=== PATIENT | male | born 1995 | race Caucasian/White ===

== ENCOUNTER 2017-06-23 21:14 | Emergency (ER) | payer OTHER, MEDICAID ==
[2017-06-23 21:44] LABS: ABSOLUTE EOSINOPHILS # (AUTO) 0.1 10^3/uL (0.0-0.6); ABSOLUTE LYMPHOCYTES (AUTO) 2.1 10^3/uL (0.5-4.7); ABSOLUTE MONOCYTES (AUTO) 0.4 10^3/uL (0.1-1.4); ABSOLUTE NEUT (AUTO) 3.1 10^3/uL (1.7-8.2); BASOPHILS % (AUTO) 0.3 % (0-2); EOSINOPHILS % (AUTO) 1.9 % (0-6); HEMATOCRIT 41.8 % (37.9-51.0); HEMOGLOBIN 14.4 g/dL (13.5-17.0); LYMPHOCYTES % (AUTO) 36.9 % (13-45); MEAN CORPUSCULAR HEMOGLOBIN 28.4 pg (27.0-33.4); MEAN CORPUSCULAR HGB CONC 34.5 g/dL (32.0-36.0); MEAN CORPUSCULAR VOLUME 82 fl (80-97); MONOCYTES % (AUTO) 7.5 % (3-13); PLATELET COUNT 219 10^3/uL (150-450); RED BLOOD COUNT 5.07 10^6/uL (4.35-5.55); RED CELL DISTRIBUTION WIDTH 12.8 % (11.5-14.0); SEGMENTED NEUTROPHILS % (AUTO) 53.4 % (42-78); TOTAL CELLS COUNTED % (AUTO) 100 %; WHITE BLOOD COUNT 5.7 10^3/uL (4.0-10.5)
[2017-06-23 22:04] LABS: ANION GAP 10 (5-19); BLOOD UREA NITROGEN 7 mg/dL (7-20); CALCIUM 9.5 mg/dL (8.4-10.2); CARBON DIOXIDE 26 mmol/L (22-30); CHLORIDE 102 mmol/L (98-107); GLUCOSE 117 mg/dL (75-110); POTASSIUM 3.7 mmol/L (3.6-5.0); SODIUM 138.2 mmol/L (137-145)
[2017-06-23 22:05] LABS: ACETAMINOPHEN < 10 ug/mL (10-30); ALCOHOL < 10 mg/dL (NONE DETECTED)
--- NOTE | 2017-06-23 22:25 | ER Document Report ---
ED General - General Mode of Arrival: Medic Information source: Patient TRAVEL OUTSIDE OF THE U.S. IN LAST 30 DAYS: No <GABY SHIPLEY - Last Filed: 06/23/17 22:33> <HERMAN SLATER - Last Filed: 06/24/17 03:37> - General Chief Complaint: Overdose Stated Complaint: POSSIBLE OVERDOSE Time Seen by Provider: 06/23/17 21:24 Notes: Patient is a 22 year old male presenting to the emergency department via EMS due to a heroin overdose. Patient states that he took a little more heroin than normal. When father arrived at bedside he states he found him unresponsive and blue so he proceeded to give him a dose of Narcan. When asking patient about rehab, he states that he has to go and has no other option. Patient states that all his friends use heroin. (GABY SHIPLEY) - Related Data Allergies/Adverse Reactions: latex [Latex] Adverse Reaction (Unknown, Verified 06/24/12 09:11) mom strong latex allergy dairy products Adverse Reaction (Severe, Uncoded 06/24/12 09:11) severe diarrhea,GI upset Past Medical History - General Information source: Patient, Parent - Social History Smoking Status: Unknown if Ever Smoked Frequency of alcohol use: None Drug Abuse: Cocaine, Heroin Family History: Reviewed & Not Pertinent Pulmonary Medical History: Reports: Hx Asthma - exercise induced,no recent ER visit Neurological Medical History: Reports: Hx Seizures - last one 3 yrs ago Past Surgical History: Denies: Hx Pacemaker - Immunizations Hx Diphtheria, Pertussis, Tetanus Vaccination: Yes <GABY SHIPLEY - Last Filed: 06/23/17 22:33> Review of Systems - Review of Systems Constitutional: No symptoms reported EENT: No symptoms reported Cardiovascular: No symptoms reported Respiratory: No symptoms reported Gastrointestinal: No symptoms reported Genitourinary: No symptoms reported Male Genitourinary: No symptoms reported Musculoskeletal: No symptoms reported Skin: No symptoms reported Hematologic/Lymphatic: No symptoms reported Neurological/Psychological: No symptoms reported -: Yes All other systems reviewed and negative <GABY SHIPLEY - Last Filed: 06/23/17 22:33> Physical Exam <GABY SHIPLEY - Last Filed: 06/23/17 22:33> <HERMAN SLATER - Last Filed: 06/24/17 03:37> - Vital signs Vitals: Resp Pulse Ox 19 99 06/23/17 21:21 06/23/17 21:21 - Notes Notes: GENERAL: Drowsy, easily aroused . No acute distress. HEAD: Normocephalic, atraumatic. EYES: Pupils approximately 4mm bilaterally. Extraocular movements intact. ENT: Dry mucosa moist, tongue midline. NECK: Full range of motion. Supple. Trachea midline. LUNGS: Clear to auscultation bilaterally, no wheezes, rales, or rhonchi. No respiratory distress. HEART: Regular rate and rhythm. No murmurs, gallops, or rubs. ABDOMEN: Soft, non-tender. Non-distended. Bowel sounds present in all 4 quadrants. EXTREMITIES: Moves all 4 extremities spontaneously. NEUROLOGICAL: Alert and oriented x3. Normal speech. PSYCH: Normal affect, normal mood. SKIN: Warm, dry, normal turgor. No rashes or lesions noted. (GABY SHIPLEY) Course - Laboratory Result Diagrams: 06/23/17 21:35 06/23/17 21:35 <GABY SHIPLEY - Last Filed: 06/23/17 22:33> - Laboratory Result Diagrams: 06/23/17 21:35 06/23/17 21:35 <HERMAN SLATER - Last Filed: 06/24/17 03:37> - Re-evaluation Re-evalutation: 06/24/17 02:36 Patient is a 22-year-old male who was brought in after heroin overdose at home during which his father gave him 2 mg of Narcan to resuscitated. Patient's family has Narcan at home because his brother also has had a problem with opiate addiction. Patient denies any suicidal or homicidal ideation. Patient states that he is used heroin for a while. Patient is willing to discuss rehabilitation. Patient was observed in the emergency department for 6 hours. He had no respiratory distress, difficulty breathing. He is ambulated without difficulty. Family has Narcan at home in case he would need to use it but they should not have to tonight. Father has been given resources for outpatient rehabilitation and patient has been given a copy of his blood work and urine. Return immediately if any worsening or concerning symptoms. Stable for discharge. (HERMAN SLATER) - Vital Signs Vital signs: Temp Pulse Resp BP Pulse Ox 97.2 F 12 129/63 H 94 06/23/17 21:27 06/24/17 00:01 06/24/17 00:01 06/24/17 00:01 - Laboratory Laboratory results interpreted by me: 06/23/17 06/24/17 21:35 01:20 Glucose 117 H Ur Leukocyte Esterase TRACE H Acetaminophen < 10 L Critical Care Note - Critical Care Note Total time excluding time spent on procedures (mins): 35 - Evaluation and management of opiate overdose, multiple re-evaluations, counseling of patient and family <HERMAN SLATER - Last Filed: 06/24/17 03:37> Discharge <GABY SHIPLEY - Last Filed: 06/23/17 22:33> <HERMAN SLATER - Last Filed: 06/24/17 03:37> - Discharge Clinical Impression: Opiate or related narcotic overdose Qualifiers: Encounter type: initial encounter Injury intent: accidental or unintentional Qualified Code(s): T40.601A - Poisoning by unspecified narcotics, accidental ( unintentional), initial encounter Condition: Stable Disposition: HOME, SELF-CARE Instructions: Instructions for Home Care Following a Drug Overdose ([facility]), Narcotic Abuse ([facility]) Additional Instructions: Please follow-up at a rehabilitation facility. Please take a copy of your blood work and urine with you. Prescriptions: Ondansetron [Zofran Odt 4 mg Tablet] 1 tab PO Q6HP PRN #15 tab.rapdis PRN Reason: For Nausea/Vomiting Clonidine HCl 0.1 mg PO BID #14 tablet Hydroxyzine Pamoate [Vistaril 25 mg Capsule] 25 mg PO BIDP PRN #14 capsule PRN Reason: Metoclopramide HCl [Reglan 10 mg Tablet] 1 tab PO TIDP PRN #25 tablet PRN Reason: Forms: Parent Work Note, Return to School, Return to Work Scribe Attestation: 06/24/17 03:37 I personally performed the services described in the documentation, reviewed and edited the documentation which was dictated to the scribe in my presence, and it accurately records my words and actions. (HERMAN SLATER) Scribe Documentation - Scribe Written by Scribe:: Boom Torres, 06/23/2017 22:33 acting as scribe for :: Frances <GABY SHIPLEY - Last Filed: 06/23/17 22:33>
[2017-06-24 00:37] VITALS: BP 129/63
[2017-06-24] MEDS ORDERED: NORMAL SALINE 1000 ML 1,000 ML IV ONE (00:40)
[2017-06-24 02:11] LABS: URINE AMPHETAMINES SCREEN NEGATIVE; URINE BARBITURATES SCREEN NEGATIVE; URINE BENZODIAZEPINES SCREEN NEGATIVE; URINE COCAINE SCREEN NEGATIVE; URINE MARIJUANA (THC) SCREEN NEGATIVE; URINE METHADONE SCREEN NEGATIVE; URINE PHENCYCLIDINE SCREEN NEGATIVE
[2017-06-24 02:12] LABS: APPEARANCE,URINE CLEAR; BILIRUBIN,URINE NEGATIVE (NEGATIVE); COLOR,URINE YELLOW; GLUCOSE, URINE NEGATIVE (NEGATIVE); KETONES,URINE NEGATIVE (NEGATIVE); LEUKOCYTE ESTERASE,URINE TRACE (NEGATIVE); NITRITE,URINE NEGATIVE (NEGATIVE); PROTEIN,URINE NEGATIVE (NEGATIVE); URINE SPECIFIC GRAVITY 1.015; UROBILINOGEN,URINE NEGATIVE mg/dL (<2.0)
--- NOTE | 2017-06-24 12:47 | EKG REPORT ---
SEVERITY:- NORMAL ECG - SINUS RHYTHM : Confirmed by: Nii Martinez MD 24-Jun-2017 12:46:32
== END 2017-06-24 02:38 | disposition home or self-care (01) ==
LOC: ER 21:14
DX: T40.1X1A Poisoning by heroin, accidental (unintentional), initial encounter (principal); Y92.003 Bedroom of unspecified non-institutional (private) residence as the place of occurrence of the external cause; F14.10 Cocaine abuse, uncomplicated; J45.909 Unspecified asthma, uncomplicated
CPT/HCPCS: 93005; 99291; 96360; 36415; 80307 ×3; 85025; 80048; 81001; 93010; J7030

== ENCOUNTER 2017-11-08 14:27 | Emergency (ER) | payer OTHER, MEDICAID ==
--- NOTE | 2017-11-08 15:49 | PSYCHOLOGICAL NOTE ---
Psych Note - Psych Note Psych Note: Reason for Consult: Substance abuse Patient presents to ER A&O x 4 after heroin overdose. Pt reports he was at work and went to the bathroom and injected 1 bag of heroin IV. Bystanders report pt was agonal breathing. Patient disclosed that he arrived to [facility] ED because he "Genny." Patient reports that he overdosed on heroin while at work. Patient denies this was an attempt at suicide willing to get high. Patient does request assistance in sobriety because he has been using for about 1 and 1/2 years now. Patient is alert and orientated to person, place, time and circumstance. Mood is euthymic as patient is currently under the influence of heroin. Patient denies suicidal and homicidal ideation. Patient is noted to be under the influence of heroin however is able to carry on a linear and organized conversation. Eye contact was poor. Conversational speech was low however easily understood. Attention and concentration were fair. Insight, judgment, impulse control are poor due to substance abuse. No medication or conditions at this time 292.89 (F11.129) opiate intoxication; without perceptual disturbances, with use disorder moderate Impression\\plan: Patient is cleared from acute psychiatric services. Patient does not meet IVC criteria per [place] GS 122C. Patient discloses using heroin in attempt to get high denies suicidal ideation. Patient requests information for substance abuse treatment; he was provided resource list. Dr. Curran was consulted and the care and management this patient; attending physician is agreement with recommendations and disposition.
--- NOTE | 2017-11-08 15:55 | ER Document Report ---
ED General - General Chief Complaint: Overdose Stated Complaint: POSSIBLE OVERDOSE Time Seen by Provider: 11/08/17 15:22 Mode of Arrival: Medic Information source: Patient, Law Enforcement Notes: 22-year-old male presents via EMS from his job at [employer] after being found down in the bathroom unresponsive. Patient admits to injecting heroin just prior to being found. He states that he intermittently uses heroin but denies any other drug use. He denies any shortness of breath, chest pain, abdominal pain, nausea, vomiting. He denies any headache. TRAVEL OUTSIDE OF THE [place] IN LAST 30 DAYS: No - HPI Onset: Just prior to arrival - Related Data Allergies/Adverse Reactions: latex [Latex] Adverse Reaction (Unknown, Verified 11/09/17 07:26) mom strong latex allergy dairy products Adverse Reaction (Severe, Uncoded 11/09/17 07:26) severe diarrhea,GI upset Past Medical History - General Information source: Patient, [facility] Records - Social History Smoking Status: Current Every Day Smoker Cigarette use (# per day): Yes - 1ppd Smoking Education Provided: Yes - Patient counselled regarding cessation for 4 minutes Frequency of alcohol use: Occasional Drug Abuse: Heroin Lives with: Family Family History: Reviewed & Not Pertinent Patient has suicidal ideation: No Patient has homicidal ideation: No - Past Medical History Cardiac Medical History: Denies: Hx Coronary Artery Disease, Hx Heart Attack, Hx Hypertension Pulmonary Medical History: Reports: Hx Asthma - exercise induced,no recent ER visit Denies: Hx Bronchitis, Hx COPD, Hx Pneumonia Neurological Medical History: Reports: Hx Seizures - last one 3 yrs ago. Denies : Hx Cerebrovascular Accident Renal/ Medical History: Denies: Hx Peritoneal Dialysis Musculoskeltal Medical History: Denies Hx Arthritis Past Surgical History: Denies: Hx Pacemaker - Immunizations Hx Diphtheria, Pertussis, Tetanus Vaccination: Yes Review of Systems - Review of Systems Notes: REVIEW OF SYSTEMS: CONSTITUTIONAL : Denies fever, chills, or sweats. Denies recent illness. Denies weight loss, recent hospitalizations. EENT: Denies visual changes, eye pain. Denies nasal or sinus congestion or discharge. Denies sore throat, oral lesions, difficulty swallowing. CARDIOVASCULAR: Denies chest pain. Denies palpitations. Denies lower extremity edema. RESPIRATORY: Denies cough, cold, or chest congestion. Denies shortness of breath, wheezing. GASTROINTESTINAL: Denies abdominal pain or distention. Denies nausea, vomiting , or diarrhea. Denies blood in vomitus, stools, or per rectum. Denies black, tarry stools. Denies constipation. GENITOURINARY: Denies difficulty urinating, painful urination, frequency, blood in urine, or vaginal discharge. MUSCULOSKELETAL: Denies back or neck pain or stiffness. Denies joint pain or swelling. SKIN: Denies rash, lesions or sores. HEMATOLOGIC : Denies easy bruising or bleeding. LYMPHATIC: Denies swollen glands. NEUROLOGICAL: Denies confusion or altered mental status. Denies passing out or loss of consciousness. Denies dizziness or lightheadedness. Denies headache. Denies weakness or paralysis. Denies problems difficulty with ambulation, slurred speech. Denies sensory loss, numbness, or tingling. Denies seizures. PSYCHIATRIC: Denies anxiety or stress. Denies depression, suicidal ideation, or homicidal ideation. Denies visual or auditory hallucinations. Physical Exam - Vital signs Vitals: Temp Pulse Resp BP Pulse Ox 98.2 F 109 H 12 131/83 H 92 11/08/17 14:34 11/08/17 14:34 11/08/17 14:34 11/08/17 14:34 11/08/17 14:34 - Notes Notes: PHYSICAL EXAMINATION: GENERAL: Well-appearing, well-nourished and in no acute distress. HEAD: Atraumatic, normocephalic. EYES: Pupils equal round and reactive to light, extraocular movements intact, sclera anicteric, conjunctiva are normal. ENT: Nares patent, oropharynx clear without exudates. Moist mucous membranes. NECK: Normal range of motion, supple without lymphadenopathy LUNGS: Breath sounds clear to auscultation bilaterally and equal. No wheezes rales or rhonchi. HEART: Regular rate and rhythm without murmurs ABDOMEN: Soft, nontender, nondistended abdomen. No guarding, no rebound. No masses appreciated. Musculoskeletal: Normal range of motion, no pitting or edema. No cyanosis. NEUROLOGICAL: Cranial nerves grossly intact. Normal speech, normal gait. Normal sensory, motor exams. GCS 15 PSYCH: Normal mood, normal affect. SKIN: Warm, Dry, normal turgor, no rashes or lesions noted. Course - Re-evaluation Re-evalutation: 11/09/17 22:30 22-year-old male with no significant past medical history presents via EMS after they found him at work in the bathroom altered and on the floor. Patient admits to heroin use just prior to being found. Upon arrival patient is mildly tachycardic but normotensive and afebrile. He is alert, awake and acting appropriate. He states that he intermittently uses heroin and no other drugs. Patient was monitored for 2 hours without recurrence of altered mental status. Patient will be calling his father for a ride. Patient provided the opportunity to ask questions, and express concerns. Discharge instructions discussed. Patient is agreeable with discharge home. Return indications explained and discussed with the patient who displays understanding. Patient encouraged to return to the emergency department immediately with any concerns. - Vital Signs Vital signs: Temp Pulse Resp BP Pulse Ox 98.2 F 93 18 125/64 96 11/08/17 14:34 11/08/17 15:23 11/08/17 15:58 11/08/17 15:58 11/08/17 15:58 Discharge - Discharge Clinical Impression: Heroin overdose Qualifiers: Encounter type: initial encounter Injury intent: accidental or unintentional Qualified Code(s): T40.1X1A - Poisoning by heroin, accidental (unintentional), initial encounter Condition: Good Disposition: HOME, SELF-CARE Instructions: Instructions for Home Care Following a Drug Overdose ([facility]), Overdose ([facility]) Additional Instructions: Follow up with your physician tomorrow for further care or return to the ED IMMEDIATELY if symptoms worsen or new concerns occur. If you cannot afford to follow up with your primary care physician a list of low cost clinics have been provided at the end of your discharge papers as well.
[2017-11-08 16:01] VITALS: BP 125/64
== END 2017-11-08 16:01 | disposition home or self-care (01) ==
LOC: ER 14:27
DX: T40.1X1A Poisoning by heroin, accidental (unintentional), initial encounter (principal); Y92.511 Restaurant or cafe as the place of occurrence of the external cause; R00.0 Tachycardia, unspecified; F17.210 Nicotine dependence, cigarettes, uncomplicated; Z71.6 Tobacco abuse counseling; J45.909 Unspecified asthma, uncomplicated
CPT/HCPCS: 99284

== ENCOUNTER 2017-11-09 07:25 | Emergency (ER) | payer OTHER, MEDICAID ==
[2017-11-09] MEDS ORDERED: DIPH/PERTUSS(ACELL)/TETANUS VAC/PF 0.5 ML SYR (>=10YO) IM ONE (08:49)
[2017-11-09] MEDS ORDERED: IBUPROFEN 800 MG TABLET PO ONE (08:49)
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
[2017-11-09] MEDS ORDERED: CEPHALEXIN 500 MG CAPSULE PO ONE (09:38)
[2017-11-09 09:55] VITALS: BP 109/58
== END 2017-11-09 09:59 | disposition home or self-care (01) ==
LOC: ER 07:25
DX: S00.31XA Abrasion of nose, initial encounter (principal); S00.81XA Abrasion of other part of head, initial encounter; W22.09XA Striking against other stationary object, initial encounter; Y93.55 Activity, bike riding; F17.200 Nicotine dependence, unspecified, uncomplicated; Z23 Encounter for immunization
CPT/HCPCS: 70486; 90471; 90715; 99283